=== PATIENT | female | born 1950 | race Caucasian/White ===

== ENCOUNTER → 2019-12-05 09:22 | Outpatient (BNVA) | payer MEDICARE, OTHER, SELFPAY | PROVIDERS: Family Provider Registered Nurse; PCP Nurse Practitioner Family; Visit Provider Nurse Practitioner Family | DX: E78.5 Hyperlipidemia, unspecified (principal); R73.09 Other abnormal glucose; E03.9 Hypothyroidism, unspecified | CPT/HCPCS: 80061; 83036; 84443 ==

== ENCOUNTER → 2020-01-22 12:15 | Outpatient (BNVA) | payer MEDICARE, OTHER, SELFPAY | PROVIDERS: Family Provider Registered Nurse; PCP Nurse Practitioner Family; Visit Provider Nurse Practitioner Family | DX: E03.9 Hypothyroidism, unspecified (principal); F41.1 Generalized anxiety disorder; E78.5 Hyperlipidemia, unspecified | CPT/HCPCS: 80053; 80061; 84443 ==

== ENCOUNTER → 2020-02-03 13:12 | Outpatient (BNVA) | payer MEDICARE, OTHER, SELFPAY | PROVIDERS: Family Provider Registered Nurse; PCP Nurse Practitioner Family; Referring Provider Nurse Practitioner Family; Visit Provider Specialist | DX: M25.562 Pain in left knee (principal) | CPT/HCPCS: 73560; 73565 ==

== ENCOUNTER 2020-02-05 15:12 | Outpatient (CLI) | payer MEDICARE, OTHER, SELFPAY ==
--- NOTE | 2020-02-05 15:22 | MR_ITS ---
WS: [id number] MRI LEFT KNEE NONCONTRAST TECHNIQUE: Axial PD, coronal PD fat sat, coronal PD, sagittal PD, and sagittal PD fat-sat images obta ined. CLINICAL INFORMATION: PAIN IN UNSPECIFIED KNEE COMPARISON: None. FINDINGS: Distal quadriceps and patella tendons are intact. Moderate suprapatellar effusion. Large lobulated po pliteal cyst with septations. Popliteal cyst measures 3.2 x 6.1 x 8.3 cm AP by transverse by cranioca udal. Mild edema in the prepatellar and infrapatellar soft tissues. Hypertrophic patella. Normal anterior and posterior cruciate ligaments. Chronic thinning of the medial and lateral meniscus . Chronic intrasubstance signal abnormality involving the medial meniscus. Chronic appearing tear in volving the posterior horn medial meniscus with T2 signal abnormality and blunting of the meniscal ro ot. Moderate chondromalacia patella. No subchondral edema. Patellar retinaculum appears normal. Medial an d lateral collateral ligaments are intact. Moderate chondromalacia involving the medial and lateral j oint compartments. Small 5 mm osteochondral defect involving the medial femoral condyle. MR/MR knee LT wo con* [id number] IMPRESSION: 1. Moderate suprapatellar effusion. 2. Large lobulated popliteal cyst measuring 3.2 x 6.1 x 8.3 cm with internal s eptations. 3. Anterior and posterior cruciate ligaments are intact. 4. Blunting of the posterior horn medial meniscus at the meniscal root with T2 signal abnormality likely chronic meniscal tear. 5. Small 5 mm osteochondral defect involving the medial femoral condyle at the articular surface. 6. Prepatellar soft tissue edema. Hypertrophic patella. 7. Moderate chondromalacia patella. 8. Medial and lateral collateral ligaments are intact.
== END 2020-02-05 15:13 | disposition home or self-care (01) ==
LOC: RADWPI 15:16
PROVIDERS: PCP Nurse Practitioner Family; Visit Provider Specialist
DX: M25.462 Effusion, left knee (principal); M71.22 Synovial cyst of popliteal space [Baker], left knee; R60.0 Localized edema; M22.42 Chondromalacia patellae, left knee
CPT/HCPCS: 73721

== ENCOUNTER 2020-02-19 06:00 | Outpatient (RCR) | payer MEDICARE, OTHER, SELFPAY | END 2020-02-24 23:59 | disposition home or self-care (01) | LOC: WPT 06:00 | PROVIDERS: PCP Nurse Practitioner Family; Referring Provider Specialist; Visit Provider Specialist | DX: M25.562 Pain in left knee (principal) | CPT/HCPCS: 97110; 97162 ==

== ENCOUNTER 2020-02-25 06:00 | Outpatient (RCR) | payer MEDICARE, OTHER, SELFPAY | END 2020-03-26 23:59 | disposition home or self-care (01) | LOC: WPT 06:00 | PROVIDERS: PCP Nurse Practitioner Family; Referring Provider Specialist; Visit Provider Specialist | DX: M25.562 Pain in left knee (principal) | CPT/HCPCS: 97110 ==

== ENCOUNTER 2020-03-27 06:00 | Outpatient (RCR) | payer MEDICARE, OTHER, SELFPAY | END 2020-04-26 23:59 | disposition home or self-care (01) | LOC: WPT 06:00 | PROVIDERS: PCP Nurse Practitioner Family; Referring Provider Specialist; Visit Provider Specialist | DX: M25.562 Pain in left knee (principal) | CPT/HCPCS: 97110 ==

== ENCOUNTER → 2020-04-08 15:24 | Outpatient (BNVA) | payer MEDICARE, OTHER, SELFPAY | PROVIDERS: PCP Nurse Practitioner Family; Visit Provider Specialist | DX: M17.12 Unilateral primary osteoarthritis, left knee (principal) | CPT/HCPCS: 73560; 73565 ==

== ENCOUNTER → 2020-12-09 09:56 | Outpatient (BNVA) | payer MEDICARE, OTHER, SELFPAY | PROVIDERS: PCP Nurse Practitioner Family; Visit Provider Nurse Practitioner Family | DX: E03.9 Hypothyroidism, unspecified (principal) | CPT/HCPCS: 84443 ==

== ENCOUNTER → 2021-06-17 10:00 | Outpatient (BNVA) | payer MEDICARE, OTHER, SELFPAY | PROVIDERS: PCP Nurse Practitioner Family; Visit Provider Nurse Practitioner Family | DX: E03.9 Hypothyroidism, unspecified (principal); I10 Essential (primary) hypertension | CPT/HCPCS: 84443 ==

== ENCOUNTER → 2021-10-13 13:35 | Outpatient (BNVA) | payer MEDICARE, OTHER, SELFPAY | PROVIDERS: PCP Nurse Practitioner Family; Visit Provider Nurse Practitioner Family | DX: R19.5 Other fecal abnormalities (principal); R19.7 Diarrhea, unspecified | CPT/HCPCS: 82270 ==

== ENCOUNTER → 2022-01-05 10:29 | Outpatient (BNVA) | payer MEDICARE, OTHER, SELFPAY | PROVIDERS: PCP Nurse Practitioner Family; Visit Provider Nurse Practitioner Family | DX: M54.6 Pain in thoracic spine (principal); R35.0 Frequency of micturition | CPT/HCPCS: 81000 ==

== ENCOUNTER → 2022-02-08 13:15 | Outpatient (BNVA) | payer MEDICARE, OTHER, SELFPAY | PROVIDERS: PCP Nurse Practitioner Family; Referring Provider Nurse Practitioner Family; Visit Provider Orthopaedic Surgery | DX: S32.010S Wedge compression fracture of first lumbar vertebra, sequela (principal); V89.2XXS Person injured in unspecified motor-vehicle accident, traffic, sequela; R39.15 Urgency of urination; M47.816 Spondylosis without myelopathy or radiculopathy, lumbar region | CPT/HCPCS: 72100; 99204 ==

== ENCOUNTER 2022-03-02 14:54 | Outpatient (CLI) | payer MEDICARE, OTHER, SELFPAY ==
--- NOTE | 2022-03-02 15:15 | MR_ITS ---
WS: [id number] MRI LUMBAR SPINE NONCONTRAST TECHNIQUE: Sagittal T1, T2 and STIR imaging. Axial T1 and T2 imaging. CLINICAL INFORMATION: compression fracture COMPARISON: None. FINDINGS: Mild lumbar curve. Mild compression superior endplate L1 anteriorly with edema consistent with recent acute compression. Minimal loss vertebral body height with mild anterior wedging. No retropulsion. N o other compression fractures. Moderate thoracic kyphosis. Chronic anterior wedging in the mid thoracic spine. Compression is unchan ged since radiograph February 08, 2022. L1-L2: Mild annular bulging. Mild facet arthropathy. Spinal canal and foramen are patent. L2-L3: Slight retrolisthesis. Mild disc bulging with slight impingement on the LEFT greater than RIGH T subarticular recess and traversing L3 nerve roots. Moderate facet arthropathy. Mild LEFT foraminal narrowing. Mild central canal stenosis. L3-L4: Mild annular bulging with slight effacement of ventral thecal sac. Slight impingement on the s ubarticular recess and traversing LEFT L4 nerve root. Mild facet arthropathy. L4-L5: Mild disc osteophyte complex with endplate ridging. Impingement traversing L5 nerve roots bila terally. Mild central canal stenosis. Moderate facet arthropathy. Mild LEFT foraminal narrowing. L5-S1: Slight anterolisthesis. Mild disc bulging with impingement on the traversing S1 nerve roots bi laterally. Mild central canal stenosis. Moderate facet arthropathy. Foramen are patent. Visualized pelvic bony structures: Normal. Paravertebral soft tissues: Normal. Cholelithiasis. MR/MR lumbar spine wo con* [id number] IMPRESSION: 1. Mild compression superior endplate L1 with edema consistent with recent acu te compression unchanged since the recent radiograph. Minimal loss vertebral vitor dy height. No retropulsion. 2. Mild central canal stenosis L2-L3, L4-5, and L5-S1. 3. No other acute compression fractures. 4. Slight anterolisthesis L5 on S1 with mild central canal stenosis. Slight im pingement traversing S1 nerve roots bilaterally. 5. Mild central canal stenosis L4-L5 with impingement traversing L5 nerve root s bilaterally in the subarticular recess. 6. Mild disc bulging L2-L3 impinges the traversing LEFT greater than RIGHT L3 nerve roots. Mild LEFT L2-L3 foraminal narrowing with moderate facet arthropath y. Mild central canal stenosis at this level. 7. Annular bulging L3-L4 impinges the traversing LEFT L4 nerve root in the sub articular recess. 8. Cholelithiasis.
== END 2022-03-02 14:55 | disposition home or self-care (01) ==
PROVIDERS: PCP Nurse Practitioner Family; Visit Provider Orthopaedic Surgery
DX: R39.15 Urgency of urination (principal); S32.010A Wedge compression fracture of first lumbar vertebra, initial encounter for closed fracture; K80.20 Calculus of gallbladder without cholecystitis without obstruction; M51.26 Other intervertebral disc displacement, lumbar region; M48.061 Spinal stenosis, lumbar region without neurogenic claudication; M48.07 Spinal stenosis, lumbosacral region; X58.XXXA Exposure to other specified factors, initial encounter
CPT/HCPCS: 72148

== ENCOUNTER → 2022-03-29 16:25 | Outpatient (BNVA) | payer MEDICARE, OTHER, SELFPAY | PROVIDERS: PCP Nurse Practitioner Family; Visit Provider Orthopaedic Surgery | DX: M54.6 Pain in thoracic spine (principal) | CPT/HCPCS: 99213 ==

== ENCOUNTER → 2022-03-30 11:47 | Outpatient (BNVA) | payer MEDICARE, OTHER, SELFPAY | PROVIDERS: PCP Nurse Practitioner Family; Visit Provider Nurse Practitioner Family | DX: S40.022A Contusion of left upper arm, initial encounter (principal); X58.XXXA Exposure to other specified factors, initial encounter | CPT/HCPCS: 85025 ==

== ENCOUNTER → 2022-06-16 08:49 | Outpatient (BNVA) | payer MEDICARE, OTHER, SELFPAY | PROVIDERS: PCP Nurse Practitioner Family; Visit Provider Nurse Practitioner Family | DX: J02.9 Acute pharyngitis, unspecified (principal); J01.90 Acute sinusitis, unspecified | CPT/HCPCS: 87880 ==

== ENCOUNTER 2022-11-03 11:21 | Outpatient (CLI) | payer MEDICARE, OTHER, SELFPAY ==
--- NOTE | 2022-11-03 11:29 | XR_ITS ---
WS: [id number] XR chest 2V* [id number] REASON FOR EXAM: R06.00 - Dyspnea, unspecified FINDINGS: The heart and the mediastinum are within normal limits. Minimal calcified granulomatous disease in both hemithoraces. Increased interstitial lung opacities in the lower lung saravia with ill-defined areas of lucency in t he upper lung saravia. No acute or subacute pulmonary parenchymal or pleural abnormality. Significant dorsal kyphosis with moderate degenerative spondylosis in the mid and lower thoracic spin e. IMPRESSION: Lung changes which may indicate the presence of central lobar emphysema. No significant hyperexpansio n.
== END 2022-11-03 11:22 | disposition home or self-care (01) ==
LOC: RAD 11:25
PROVIDERS: PCP Nurse Practitioner Family; Visit Provider Nurse Practitioner Family
DX: R06.00 Dyspnea, unspecified (principal); I10 Essential (primary) hypertension; E78.5 Hyperlipidemia, unspecified; E03.9 Hypothyroidism, unspecified
CPT/HCPCS: 71046; 80053; 80061; 84443

== ENCOUNTER 2022-11-23 11:43 | Outpatient (CLI) | payer MEDICARE, OTHER, SELFPAY ==
--- NOTE | 2022-11-23 12:15 | CT_ITS ---
WS: [id number] LDCT LUNG CANCER SCREENING HISTORY: Z12.2 - Encounter for screening for malignant neoplasm of... TECHNIQUE: Axial imaging performed from the apices to 1 cm below the costophrenic angles. Coronal and sagittal reformats are submitted with axial MIP series. All CT scans at [facility] use at least one of these dose optimization techniques: automated exposure control; mA and/or kV adjustment per patient size (includes targeted exams where dose is matched to clinical indication); or iterativ e reconstruction. DLP: 55.79 mGy.cm DIvol: Mean CTDIvol: 1.00 (mGy) COMPARISON: None available. Diagnostic quality: Satisfactory Lungs: Mild centrilobular emphysema. No pulmonary mass or nodule. No endobronchial lesions. Heart: Normal size heart with no pericardial effusion.. Other findings: Minimal atherosclerotic plaque within the thoracic aorta. Pulmonary artery is equal i n size to the aorta. No adenopathy. Asymmetric enhancement of the thyroid. No significant enhancement of the LEFT thyroid. May be small caliber or surgically removed. No surgical clips or history of thy roidectomy was provided. Variable density in the gallbladder lumen. IMPRESSION: CT/CT lung screening [id number] LUNG-RADS: 1S-Negative with Significant Findings FOLLOW UP: 12 Month: Continue annual screening with LDCT OTHER FINDINGS (S MODIFIER): Possible cholelithiasis. Consider follow-up RIGHT upper quadrant ultrasound.
== END 2022-11-23 11:44 | disposition home or self-care (01) ==
PROVIDERS: PCP Nurse Practitioner Family; Visit Provider Nurse Practitioner Family
DX: Z12.2 Encounter for screening for malignant neoplasm of respiratory organs (principal)
CPT/HCPCS: 71271

== ENCOUNTER → 2023-02-05 15:03 | Outpatient (BNVA) | payer MEDICARE, OTHER, SELFPAY | PROVIDERS: PCP Nurse Practitioner Family; Visit Provider Nurse Practitioner | DX: R30.0 Dysuria (principal) | CPT/HCPCS: 81000 ==

== ENCOUNTER → 2023-02-15 08:31 | Outpatient (BNVA) | payer MEDICARE, OTHER, SELFPAY | PROVIDERS: PCP Nurse Practitioner Family; Visit Provider Nurse Practitioner Family | DX: E78.5 Hyperlipidemia, unspecified (principal) | CPT/HCPCS: 80061 ==

== ENCOUNTER → 2023-05-26 10:08 | Outpatient (BNVA) | payer MEDICARE, OTHER, SELFPAY | PROVIDERS: PCP Nurse Practitioner Family; Visit Provider Nurse Practitioner Family | DX: I10 Essential (primary) hypertension (principal) | CPT/HCPCS: 80053; 80061; 84443 ==

== ENCOUNTER 2023-07-20 11:25 | Outpatient (CLI) | payer MEDICARE, OTHER, SELFPAY ==
--- NOTE | 2023-07-20 11:45 | XRR_ITS ---
PROCEDURE INFORMATION: Exam: XR Right Knee Exam date and time: 07/20/2023 11:47 AM Age: 72 years old Clinical indication: Pain; Knee; Right; Additional info: M25.561 - pain in right knee TECHNIQUE: Imaging protocol: Radiologic exam of the right knee. Views: 3 views. COMPARISON: CR XR knees AP WB w RT lmt ORTH 11/16/2016 11:23 AM FINDINGS: Bones/joints: . Mild tricompartment narrowing and spurring. No fracture or dislocation. No erosive changes. Soft tissues: Normal. XR/XR knee RT 3V* [id number] IMPRESSION: Mild degenerative changes.
== END 2023-07-20 11:26 | disposition home or self-care (01) ==
LOC: RAD 11:27
PROVIDERS: PCP Nurse Practitioner Family; Visit Provider Nurse Practitioner Family
DX: M17.11 Unilateral primary osteoarthritis, right knee (principal)
CPT/HCPCS: 73562

== ENCOUNTER → 2023-08-03 09:16 | Outpatient (BNVA) | payer MEDICARE, OTHER, SELFPAY | PROVIDERS: PCP Nurse Practitioner Family; Referring Provider Nurse Practitioner Family; Visit Provider Physician Assistant | DX: M25.561 Pain in right knee (principal); G89.29 Other chronic pain; M17.11 Unilateral primary osteoarthritis, right knee; Z46.89 Encounter for fitting and adjustment of other specified devices | CPT/HCPCS: 20610; 73560; 73565; 97760; 99213; J3301; L1851 ==

== ENCOUNTER 2023-08-03 14:27 | Outpatient (CLI) | payer MEDICARE, OTHER, SELFPAY | END 2023-08-03 14:28 | disposition home or self-care (01) | LOC: SPT 14:27 | PROVIDERS: PCP Nurse Practitioner Family; Visit Provider Physician Assistant | DX: Z46.89 Encounter for fitting and adjustment of other specified devices (principal); M17.11 Unilateral primary osteoarthritis, right knee | CPT/HCPCS: 97760; L1851 ==

== ENCOUNTER → 2023-08-25 09:38 | Outpatient (BNVA) | payer MEDICARE, OTHER, SELFPAY | PROVIDERS: PCP Nurse Practitioner Family; Visit Provider Physician Assistant | DX: M17.11 Unilateral primary osteoarthritis, right knee | CPT/HCPCS: 99214 ==

== ENCOUNTER 2023-10-18 10:49 | Outpatient (CLI) | payer MEDICARE, OTHER, SELFPAY ==
[2023-10-18 11:07] LABS: Add Urine Microscopic? NO; Charge for UA Resulting for Rev
[2023-10-18 11:12] LABS: Basophils % 0.8 %; Eosinophils # 0.2 10^3/uL (0.0-0.8); Eosinophils % 4.4 %; Hematocrit 40.3 % (36-47); Lymphocytes # 1.9 10^3/uL (0.8-4.8); Lymphocytes % 38.1 %; Mean Corpuscular Hemoglobin 28.6 pg (27-33); Mean Corpuscular Volume 92.2 fl (85-98); Mean Platelet Volume 11.1 fL (7.4-10.4); Monocytes # 0.5 10^3/uL (0.2-0.9); Monocytes % 9.2 %; Neutrophils # 2.37 10^3/uL (1.8-7.7); Neutrophils % 47.3 %; Nucleated Red Blood Cells % 0 %; Platelet Count 194 10^3/cmm (157-399); Red Blood Count 4.37 10^6/uL (3.85-5.65); Red Cell Distribution Width 13.8 % (12.1-15.1); White Blood Count 5.01 10^3/uL (3.29-11.43)
[2023-10-18 11:19] LABS: Bilirubin Urine Neg (Negative); Blood Urine Neg (Negative); Glucose Urine UA Norm (Normal); Ketones Urine Negative (Negative); Leukocyte Esterase Urine Negative (Negative); Nitrate Urine Negative (Negative); Protein Urine Neg (Negative); Urine Appearance Clear (CLEAR); Urine Color Yellow (Yellow); Urobilinogen Urine Norm (Negative); pH Urine 6.5 (5-7)
[2023-10-18 11:27] LABS: Alanine Aminotransferase 24 U/L (0-33); Albumin Level 4.2 g/dL (3.5-5.2); Alkaline Phosphatase 84 U/L (35-105); Aspartate Amino Transferase 24 U/L (0-32); Blood Urea Nitrogen 10 mg/dL (8-23); Calcium 9.3 mg/dL (8.5-10.5); Carbon Dioxide 27 mmol/L (22-29); Chloride 103 mmol/L (98-107); Globulin 2.8 g/dL (1.3-4.6); Glucose 94 mg/dL (65-115); Osmolality Calculated 289 mOsm/kg (285-295); Sodium 140 mmol/L (136-145); Total Bilirubin 0.3 mg/dL (0.15-1.2)
== END 2023-10-18 10:50 | disposition home or self-care (01) ==
LOC: LAB 10:50
PROVIDERS: Physician Assistant; PCP Nurse Practitioner Family; Visit Provider Student in an Organized Health Care Education/Training Program
DX: Z01.818 Encounter for other preprocedural examination (principal)
CPT/HCPCS: 36415; 80053; 81003; 85025

== ENCOUNTER 2023-10-25 10:30 | Outpatient (CLI) | payer MEDICARE, OTHER, SELFPAY ==
--- NOTE | 2023-10-25 10:30 | CT_ITS ---
WS: [id number] CT RIGHT KNEE, NONCONTRAST [facility] TECHNIQUE: Noncontrast CT of the RIGHT knee to include the RIGHT hip and ankle. CLINICAL INFORMATION: M17.11 - Unilateral primary osteoarthritis, right knee COMPARISON: None. DLP: 929.[address] scans at [facility] use at least one of these dose optimization techniques: automated e xposure control; mA and/or kV adjustment per patient size (includes targeted exams where dose is matc hed to clinical indication); or iterative reconstruction. FINDINGS: Moderate to advanced tricompartment arthritis with hypertrophic changes along the joint line. Small s uprapatellar effusion. Slightly hypertrophic patella. Lobulated popliteal cyst measuring approximatel y 4.6 x 1.5 cm. This also extends craniocaudal Normal visualized pelvic bony structures. Normal partially visualized sigmoid colon. No inguinal lymp hadenopathy. CT/CT knee RT [facility] [id number] IMPRESSION: Images obtained for preoperative purposes.
== END 2023-10-25 10:31 | disposition home or self-care (01) ==
PROVIDERS: PCP Family Medicine; Visit Provider Physician Assistant
DX: Z01.818 Encounter for other preprocedural examination (principal); M17.11 Unilateral primary osteoarthritis, right knee; M71.21 Synovial cyst of popliteal space [Baker], right knee
CPT/HCPCS: 73700; 93005

== ENCOUNTER → 2023-11-02 15:15 | Outpatient (BNVA) | payer MEDICARE, OTHER, SELFPAY | PROVIDERS: PCP Family Medicine; Visit Provider Physician Assistant | DX: M17.11 Unilateral primary osteoarthritis, right knee (principal) | CPT/HCPCS: 99213 ==

== ENCOUNTER 2023-11-06 10:05 | Observation (INO) | payer MEDICARE, OTHER, SELFPAY ==
[2023-11-06] VITALS (24 sets, daily range): BP systolic 95–161; BP diastolic 50–72; PULSE 61–96; RESP 14–70; TEMP 36.2–37.4; O2SAT 92–100; BMI 29.2
[2023-11-06] MEDS: scopolamine 1.5 Patch 1 PATCH TRANSDERMA (06:23)
[2023-11-06] MEDS: lactated ringers 500 ML IV (06:23)
[2023-11-06] MEDS: acetaminophen 1,000 MG/100 ML PIGGYBACK 400 MG IV ×3 (06:24→22:38)
[2023-11-06] MEDS: sodium chloride 0.9% 1,000 ML 30 ML IV (06:38)
[2023-11-06 06:47] LABS: Basophils % 0.7 %; Eosinophils # 0.2 10^3/uL (0.0-0.8); Eosinophils % 3.8 %; Hematocrit 41.2 % (36-47); Lymphocytes # 1.8 10^3/uL (0.8-4.8); Mean Corpuscular HGB Conc 31.6 g/dL (30-55); Mean Corpuscular Hemoglobin 28.5 pg (27-33); Mean Corpuscular Volume 90.4 fl (85-98); Mean Platelet Volume 11.6 fL (7.4-10.4); Monocytes # 0.5 10^3/uL (0.2-0.9); Monocytes % 8.2 %; Neutrophils # 3.01 10^3/uL (1.8-7.7); Neutrophils % 53.9 %; Nucleated Red Blood Cells % 0 %; Platelet Count 216 10^3/cmm (157-399); Red Blood Count 4.56 10^6/uL (3.85-5.65); Red Cell Distribution Width 13.6 % (12.1-15.1); White Blood Count 5.58 10^3/uL (3.29-11.43)
[2023-11-06 06:56] LABS: Blood Urea Nitrogen 13 mg/dL (8-23); Calcium 9.1 mg/dL (8.5-10.5); Carbon Dioxide 25 mmol/L (22-29); Chloride 104 mmol/L (98-107); Glucose 109 mg/dL (65-115); Osmolality Calculated 291 mOsm/kg (285-295); Sodium 140 mmol/L (136-145)
--- NOTE | 2023-11-06 07:07 | W.PM.OPSUD ---
Surgery/Procedure H&P Update DATE OF PROCEDURE: November 06, 2023 DATE H&P PERFORMED: 11/02/23 H&P UPDATE INFORMATION: I have reviewed H&P completed within last 30 days, I have examined patient prior to procedure and No changes to prior documentation CHANGES TO PREVIOUS DOCUMENTATION: Patient is clear the preoperative clearance process. Patient is over 90 days out from her injection she has no change in her health since her last visit. She is ready to proceed with surgical intervention for right total knee arthroplasty Wilver robotic assisted today. PREOP DIAGNOSIS: Right knee degenerative joint disease PRIMARY INDICATION FOR PROCEDURE: Right knee degenerative joint disease PLANNED PROCEDURE: Operation Date: 11/06/23 07:00 Proposed Procedures p Wilver Robot Total Knee Arthroplasty(Right) - Ang Alvarez DO
[2023-11-06 07:09] LABS: Anion Gap 14.7 (5-19); Potassium 3.7 mmol/L (3.5-5.1)
--- NOTE | 2023-11-06 07:11 | P.ANESASSM_ITS ---
Pre-Anesthetic Assessment Height/Weight: Height 1.55 m Weight 70.307 kg Temp Pulse Resp BP Pulse Ox O2 Del Method 97.9 F 63 18 161/67 98 Room Air 11/06/23 06:02 11/06/23 06:02 11/06/23 06:02 11/06/23 06:02 11/06/23 06:02 11/06/23 06:02 Preop Diagnosis: Right knee degenerative joint disease Operation Date: 11/06/23 07:00 Proposed Procedures p Wilver Robot Total Knee Arthroplasty(Right) - Ang Alvarez DO Familial anesthetic complications: None Was Beta Bambi taken within 24 hours: N/A Was Clonidine taken within 24 hours: N/A Last intake: Intake Last Liquid Date 11/05/23 Last Liquid Time 22:00 Last Solid Date 11/05/23 Last Solid Time 16:00 Social No alcohol and No tobacco Exam alert, oriented x 3, clear to auscultation bilaterally and regular rate & rhythm Airway Mallampati: Class I Dentition: false Pulmonary Chronic Obstructive Pulmonary Disease CV/HEM Hypertension MVP - only symptoms are occassional palpitations, recieved an echo and was told it was so mild it could barely be seen GI Gastroesophageal Reflux Disease Metabolic Thyroid Disease Anesthetic Plan ASA status: 3 Anesthesia: Regional (specify below) Risk of > 500 ml blood loss (7ml/kg in children): No Medications/Allergies Home Medications Medication Instructions Recorded Confirmed Last Taken Type albuterol sulfate 90 mcg/actuation 2 puff inhalation Q6H PRN 11/03/22 11/06/23 10/30/23 Rx aerosol inhaler shortness of breath or wheezing #6.7 grams Right (medial) Instructional Assistant Knee Brace #1 ea 08/03/23 11/02/23 Unknown Rx clonazepam 0.5 mg tablet 0.5 mg PO .at hs #90 tabs 08/15/23 11/06/23 11/05/23 Rx famotidine 40 mg tablet 40 mg PO DAILY #90 tabs 10/25/23 11/06/23 Unknown Rx escitalopram oxalate 5 mg tablet 5 mg PO DAILY 11/03/23 11/06/23 11/05/23 History levothyroxine 50 mcg tablet 50 mcg PO DAILY 11/03/23 11/06/23 11/06/23 History propranolol 20 mg tablet 20 mg PO TID 11/03/23 11/06/23 11/06/23 History Allergies Allergy/AdvReac Type Severity Reaction Status Date / Time doxycycline Allergy Unknown Verified 11/06/23 06:00 fexofenadine [From Alessandra] Allergy Unknown Verified 11/06/23 06:00 fluticasone [From Flonase] Allergy rash Verified 11/06/23 06:00 meloxicam [From Mobic] Allergy chest pains Verified 11/06/23 06:00 naproxen [From Aleve] Allergy chest pains Verified 11/06/23 06:00 paroxetine [From Paxil] Allergy sweating Verified 11/06/23 06:00 medrol Allergy tachycardia Uncoded 11/06/23 06:00 Current Medications Generic Name Dose Route Start Last Admin Trade Name Freq PRN Reason Stop Dose Admin Sodium Chloride 1,000 mls @ 30 mls/hr 11/06/23 06:00 11/06/23 06:38 Sodium Chloride 0.9% IV 11/07/23 05:59 30 mls/hr .Q24H FREDRICK Administration PFSH Anesthesia Medical History Compression fracture of L1 vertebra Nonrheumatic mitral (valve) prolapse Hypertension Lateral meniscal tear Anxiety and depression Hypothyroidism Surgical History History of partial thyroidectomy benign pathology History of tonsillectomy H/O bilateral mastectomy (~09/27/23) prophylactic History of partial hysterectomy Hx of dilation and curettage Family History Mother Cancer pancreatic cancer and breast cancer Father Aortic aneurysm and dissection Grandmother Diabetes 1.5, managed as type 2 Social History Smoking and tobacco/nicotine status: never used tobacco/nicotine Quit status (tobacco/nicotine): has quit using Year quit tobacco: 1983 Second hand smoke exposure: No Alcohol intake: never Substance/Drug Use: never Adopted: No Caregiver/support person: No Lives independently: No Household members: none Marital status: / Number of children: 1 Number of grandchildren: 2 service: No Current occupational status: employed 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 Pets and animals: Yes Pets & animals: cat(s) and dog(s) Leisure activites: reading and other 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 Sexually active: No Do you think of yourself as: Straight/Heterosexual Current gender identity: Female Joi/Latter-Day: Christianity Special joi needs: No Agree to transfusion: Yes Data Anesthesia 11/06/23 06:33 11/06/23 06:17 Short CBC 11/06/23 Range/Units 06:33 WBC 5.58 (3.29-11.43) 10^3/uL Hgb 13.00 (11.27-16.99) g/dL Hct 41.2 (36-47) % MCV 90.4 (85-98) fl Plt Count 216 (157-399) 10^3/cmm Neut % (Auto) 53.9 % Neut # (Auto) 3.01 (1.8-7.7) 10^3/uL BMP 11/06/23 06:17 Sodium 140 Potassium 3.7 Chloride 104 Carbon Dioxide 25 BUN 13 Creatinine 0.7 Glucose 109 Calcium 9.1 Cardiac Studies: 2 No Data to Display
[2023-11-06] MEDS: ceFAZolin 2,000 MG in sodium chloride 0.9% (plus) 50 ML 100 MG IV ×3 (07:12→23:11)
[2023-11-06] MEDS: tranexamic acid 1,000 mg/10mL SDV 1000 MG IV (07:50)
[2023-11-06] MEDS: EPINEPHrine 1 mg/mL INJ XX (08:32)
[2023-11-06] MEDS: tranexamic acid 1,000 mg/10mL SDV 1000 MG XX (08:32)
[2023-11-06] MEDS: ROPivacaine 0.2% Premix 100 mL 200 MG INTRA-ARTI (08:32)
--- NOTE | 2023-11-06 09:30 | P.BOP_ITS ---
Date of Procedure: 11/06/2023 Surgeon: Ang Alvarez DO Ct Technician(s): Yassine Alvarez PA-C Procedure(s) performed: Right total knee arthroplasty?Wilver robotic assisted Findings of the procedure(s): Right knee degenerative joint disease underwent procedure as planned without issues or complications. Estimated blood loss: 25 mL Specimen(s) removed: Tibia femur and patellar bone cuts removed Post-operative diagnosis: Right knee degenerative joint disease
--- NOTE | 2023-11-06 09:32 | PM.OP ---
Operative Report Date of procedure: November 06, 2023 Surgeon: Ang Alvarez DO Procedure: Preoperative diagnosis: Right knee degenerative joint disease Post-op diagnosis: Same Procedure done: Right total knee arthroplasty, cemented?robotic assisted Wilver Implants: [place] triathlon size 4 femur CR cemented?Right Alisha triathlon size? 4 tibia universal baseplate cemented Alisha triathlon symmetric patella size 33 mm [place] triathlon polyethylene 9mm Surgeon: Ang Alvarez DO Estimated blood?loss: 25 mL Tourniquet 67mins IV fluids: 1100 mL Urine output: 1000 mL Complications: None Condition: stable Disposition: floor Brief History: Patient is a 72-year-old female with with chronic?Right knee degenerative joint disease.? Patient has been worked up in the outpatient setting in the orthopedic office at this point time through shared decision making given? eelk-we-gela arthritis as well as failed conservative treatment, and pt would?like to proceed with a?Right total knee arthroplasty.? Through shared decision making elected to proceed with surgical intervention for?Right total knee arthroplasty.? We talked about continued conservative treatment and surgical intervention as far as the risk benefits complications alternatives surgical and nonsurgical treatment options.? At this point time understanding patient risks with surgery he agrees to proceed with surgical intervention.? Once again? risk with surgery include but are not?limited to make it better make it worse blood clot, heart attack, stroke, on the table, infection, injury to nerves or vessels, persistent pain, arthrofibrosis, implant failure.? Understanding these risks patient agrees to proceed with surgical intervention consent was obtained in the office.? All questions answered. Procedure: Patient was seen and evaluated in the preoperative holding area.? Consent was reviewed and signed with patient with plan for?Right total knee arthroplasty.? All questions answered.? Correct extremity marked.? Patient seen and evaluated by the anesthesia department and once cleared for surgery was taken back to the operative suite.? Patient was placed into a supine position on the OR table.? All bony prominences were well-padded.? Patient was appropriately secured to the bed.? Patient underwent anesthesia per the anesthesia department.? Patient received spinal anesthesia and? Trejo catheter was placed.? A nonsterile tourniquet was applied to the?Right thigh.? At this point in time a final timeout performed.? Patient received appropriate preoperative antibiotics and TXA. Next the?Right?lower extremity was then prepped and draped in standard orthopedic fashion. Esmarch tourniquet was used exsanguinate the?Right?lower extremity.? Tourniquet was insufflated to 250 mmHg. A standard anterior incision was made over midline of the knee.? Sharp scalpel excision through skin and subcutaneous tissue full-thickness skin flaps were made.? Fascia was elevated off of the extensor retinaculum was stable with medial parapatellar arthrotomy was then made.? The performed standard sequential releases.? Immediately on entry into the joint patient was found to have severe eburnated bone and tricompartmental arthritic changes noted.? With significant osteophyte formation.? Next the the patella was then stuffed and the knee was then flexed.?? Niesha was placed superiorly around the anterior aspect of the femur this was freed of synovium and I subsequently then placed by 2 femur pins to establish my femur arrays for the Wilver robot.? These were then placed bicortically and? femur array was then appropriately secured with appropriate visualization.? Next attention was turned towards the tibial rays.? These were then drilled sequentially bicortically in parallel fashion and intraincisional.? I then placed my guide as well as my tibial array on in place.? This was appropriately secured and had excellent visualization with the Wilver robot.? Next the tibial checkpoint as well as femur checkpoint were then placed.? At this point time I then subsequently established my head center as well as my medial?lateral malleoli as well as my checkpoints.? Next utilizing standard Wilver technology I then mapped out the appropriate points and confirmation points around the femur as well as the tibia in standard fashion.? Once this was then done I then removed all osteophytes in preparation for dynamic testing.? All osteophytes were removed as well as I removed the ACL and the PCL was excised due to its significant tearing and degeneration noted.? At this point time the knee was brought into full extension and we performed our standard evaluation of our gap balancing stressing his?ligaments and extension as well as flexion appropriate adjustments were made to have appropriate gap balancing in both flexion and extension.? This plan for final counts.? We get a preoperative plan evaluating our implants which was a size 4 femur and a size 4 tibia.? Next we brought in the Wilver robot and sequentially made our femur cuts.? All excess bony cuts were then removed.? Finally we made our tibial cut.? Once this was done a standard PCL retractor was then placed into this position I excised the medial and?lateral meniscus.? The tibial cut was then subsequently removed all excess bony debris was removed.? I then utilized a?lamina hotel or motel cleaning supervisor and remove the posterior osteophytes.? At this point time sized the tibia and confirmed this was a size 4.? I utilized our blunt probe to establish rotation of tibial implant.? Once this was done I then placed my tibia size 4 trial in appropriate position and then subsequently placed tibial pins to hold this into place placed a size 9 mm poly as well as a size 4 femur which was appropriately impacted in place knee was then subsequently brought into extension. Trials were then assessed,? this was stable with varus valgus stress in extension as well as had symmetrical translation when brought into flexion demonstrating symmetrical gaps. I had excellent balance gaps in flexion and extension with varus and valgus stresses.? At this point I was satisfied with these implants these were then verified and opened on the back table size 4 tibia, size 4 femur,? size 9 mm polythickness.? We did confirm appropriate gap balancing and stresses as well as alignment utilizing? [employer] and were satisfied with this plan.? ?At this point time with my trials in place I then towel clip the patella everted this made appropriate measurements subsequently utilizing freehand technique performed by patellar resurfacing this was confirmed to be appropriate resection and subsequently sized to be a 33 mm symmetric.? My drill peg guides were then clamped and appropriate position and appropriate position in the patella for appropriate tracking and parallel with the joint.? Pegs were drilled trial implant was placed and the knee was then subsequently ranged and found to have excellent patellar tracking.? Femur pegs were then drilled.? All checkpoints as well as guidepins and arrays were removed and appropriate counts made.?Satisfied with our tibial placement rotation I then utilized the keel punch and prepped the tibia.? At this point time all of our trial implants were removed.? The wound bed? was thoroughly irrigated and dried and prepped for cementation.? Cement was mixed on the back table.? Once cement was ready this was then covered onto the tibia and the tibial baseplate was then impacted and all excess cement was removed.? Next the polyethylene was then impacted into place on the tibial baseplate.? Next cement was placed onto the femur as well as under the femur implants and impacted in to place and all excess cement was extruded and removed.? Knee was taken into full extension? to clear all excess cement was removed.? Warm saline was placed over the joint.? I then towel clip patella and dried for cementation. cemented the patella into place.? This was all clamped and the cement was allowed to cure.? Thorough irrigation performed with pulse?lavage.? I then placed my periarticular injection while the cement was curing.? Once cured the knee was taken through range of motion and had excellent stability and gaps were balanced in flexion and extension.? Tourniquet was then deflated. hemostasis satisfactory with electrocautery.? Next I then subsequently closed the capsule with Ethibond suture as well as a running strata fix suture.? Knee was then taken through range of motion 30 times.? Next the skin was then closed in?layered fashion of running stratifix sutures of deep and subcutenous tissue and skin.? ?closed in flexion and Prineo glue was then placed over the incision this allowed to cure.? Incision was covered with Silverlon, with ABDs soft roll and Zac wrap.? Patient was then awakened from anesthesia and taken to PACU in stable condition. Disposition: Patient taken to PACU in stable condition will be admitted to the floor for pain control PT/OT weight-bear as tolerated?Right?lower extremity dressing changes as needed, DVT prophylaxis. Pain control. Patient will receive appropriate postoperative antibiotics. patient will be seen today by the internal medicine team for medical management.? Patient will follow up with the office in 2 weeks.? Patient understands agrees with current plan.? All questions answered.
--- NOTE | 2023-11-06 09:45 | XR_ITS ---
WS: [id number] Examination: XR knee RT 1-2V [id number] Reason for Exam: s/p R TKA Date: November 06, 2023 Comparison: August 03, 2023 Findings: Postop changes of a total right knee prosthesis are noted. The components are intact. They're well-po sitioned and aligned. XR/XR knee RT 1-2V [id number] IMPRESSION: The total knee prosthesis is well-positioned.
--- NOTE | 2023-11-06 10:35 | ANE.PACU2 ---
Inpatient post-anesthesia follow up: Airway intact: Yes Vital signs: Temperature 99.0 F Pulse Rate 74 Respiratory Rate 16 Blood Pressure 130/72 Pulse Oximetry 96 Oxygen Delivery Me thod Room Air Oxygen Flow Rate 6 Fraction of Inspir ed Oxygen Hydration adequate: Yes Nausea and vomiting: No Pain level: 1 Mental status: Baseline
--- NOTE | 2023-11-06 10:36 | SUR.PHASEI ---
1030 pt rates pain at a 5 but does not want pain medication, states does not want pain medication because she is allergic to several medications and does not want to take the chance of being allergic to something she has never taken.
--- NOTE | 2023-11-06 10:49 | PM.PACU ---
PACU note Narrative: Patient is a 72-year-old female that just underwent a right total knee arthroplasty. Pt transferred to PACU in stable condition. Dressing is dry. pt is awake and alert. pt can wiggle toes and plantarflex and dorsiflex foot. pt able to perform straight leg raise, Femoral nerve intact. Distal pulses are palpable toes are warm and well-perfused. Cap refill is normal and under 2 seconds. Sensation to foot is intact. Pain is controlled. Exam: awake Disposition: admitted
--- NOTE | 2023-11-06 11:06 | P.CONIM_ITS ---
Providers/Reason For Consult 2 Consulting Physician/Specialty*: Kadeem Hyde MD, hospitalist Reason for Consult*: Medical management Requesting Physician: Dr. Alvarez Attending Physician: Ang Alvarez DO Primary Care Provider: Fátima Hoffman MD History of Present Illness History of Present Illness Yakelin Sunshine is a 72 year old female with history of hypothyroidism, GERD, hypertension who presented to the hospital for right total knee arthroplasty. She received general anesthesia. No complications during surgery, minimal estimated blood loss. I am asked to see her in consultation for her chronic medications. During my evaluation she is still recovering from anesthesia. Review of Systems 2 General: Reports: ROS unobtainable due to mental status Medications/Allergies Home Medications Medication Instructions Recorded Confirmed Last Taken Type albuterol sulfate 90 mcg/actuation 2 puff inhalation Q6H PRN 11/03/22 11/06/23 10/30/23 Rx aerosol inhaler shortness of breath or wheezing #6.7 grams Right (medial) Plaster Tender Knee Brace #1 ea 08/03/23 11/02/23 Unknown Rx clonazepam 0.5 mg tablet 0.5 mg PO .at hs #90 tabs 08/15/23 11/06/23 11/05/23 Rx famotidine 40 mg tablet 40 mg PO DAILY #90 tabs 10/25/23 11/06/23 Unknown Rx escitalopram oxalate 5 mg tablet 5 mg PO DAILY 11/03/23 11/06/23 11/05/23 History levothyroxine 50 mcg tablet 50 mcg PO DAILY 11/03/23 11/06/23 11/06/23 History propranolol 20 mg tablet 20 mg PO TID 11/03/23 11/06/23 11/06/23 History oxycodone 5 mg tablet 5 mg PO Q6H PRN pain postop 7 days 11/06/23 Unknown Rx #28 tabs Allergies Allergy/AdvReac Type Severity Reaction Status Date / Time doxycycline Allergy Unknown Verified 11/06/23 06:00 fexofenadine [From Alessandra] Allergy Unknown Verified 11/06/23 06:00 fluticasone [From Flonase] Allergy rash Verified 11/06/23 06:00 meloxicam [From Mobic] Allergy chest pains Verified 11/06/23 06:00 naproxen [From Aleve] Allergy chest pains Verified 11/06/23 06:00 paroxetine [From Paxil] Allergy sweating Verified 11/06/23 06:00 medrol Allergy tachycardia Uncoded 11/06/23 06:00 PFSH Acute 2 PFSH: Medical History Compression fracture of L1 vertebra Nonrheumatic mitral (valve) prolapse Hypertension Lateral meniscal tear Anxiety and depression Hypothyroidism Surgical History History of partial thyroidectomy benign pathology History of tonsillectomy H/O bilateral mastectomy (~09/27/23) prophylactic History of partial hysterectomy Hx of dilation and curettage Family History Mother Cancer pancreatic cancer and breast cancer Father Aortic aneurysm and dissection Grandmother Diabetes 1.5, managed as type 2 Social History Smoking and tobacco/nicotine status: never used tobacco/nicotine Quit status (tobacco/nicotine): has quit using Year quit tobacco: 1982 Second hand smoke exposure: No Alcohol intake: never Substance/Drug Use: never Adopted: No Caregiver/support person: No Lives independently: No Household members: none Marital status: / Number of children: 1 Number of grandchildren: 2 service: No Current occupational status: employed 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 Pets and animals: Yes Pets & animals: cat(s) and dog(s) Leisure activites: reading and other 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 Sexually active: No Do you think of yourself as: Straight/Heterosexual Current gender identity: Female Joi/[employer] Special joi needs: No Agree to transfusion: Yes Vitals/I&O/Wt Last Vital Signs Temp 97.2 F L 11/06/23 10:32 Pulse 72 11/06/23 10:32 Resp 16 11/06/23 10:32 BP 145/62 11/06/23 10:32 Pulse Ox 95 11/06/23 10:32 O2 Del Method Room Air 11/06/23 10:32 O2 Flow Rate 6 11/06/23 09:58 08/11/24 08/12/24 08/12/24 22:59 06:59 14:59 Intake Total 600 / 600 1150 / 1150 Output Total 1025 / 1025 Balance 600 / 600 125 / 125 Weight last 48 hrs Weight 70.307 kg Physical Exam 2 Narrative: General exam is a sleepy white female, still with her oral airway and. HEENT: Atraumatic normocephalic. Oropharynx with oral airway. Neck is supple no lymphadenopathy thyromegaly Cardiovascular regular rate and rhythm without murmur, no S3-S4 Lungs clear Abdomen is soft, nontender demonstrates Trejo Extremity, right leg with dressing, clean and dry. Distal perfusion intact without edema Skin no rash Neuro no obvious focal deficits. Urinary Catheter Management: Trejo: Cath Placed During This Visit: yes Urinary Catheter Date of Insertion: 11/06/23 Urinary Catheter Time of Insertion: 07:37 Data 11/06/23 06:33 11/06/23 06:17 Other Labs: Recent urinalysis negative EKG reviewed by me demonstrates sinus bradycardia, normal axis, no acute changes A&P Assessment and plan (1) Osteoarthritis of right knee: Directly postoperative right knee arthroplasty Pain control Rehabilitation DVT prophylaxis with Eliquis CBC and BMP tomorrow to check for postoperative acute blood loss anemia as well as electrolytes considering she is getting fluids. (2) Hypertension: Continue home medication of propranolol, monitor blood pressure closely Qualifiers: Hypertension type: essential hypertension Qualified Code(s): I10 - Essential (primary) hypertension (3) Hyperlipemia: Qualifiers: Hyperlipidemia type: mixed hyperlipidemia Qualified Code(s): E78.2 - Mixed hyperlipidemia (4) Generalized anxiety disorder: Continue patient's Klonopin (5) GERD (gastroesophageal reflux disease): Continue Pepcid Plan History of hypothyroidism, continue thyroid hormone Thank you for this consultation Will continue to follow with you Consult Attestations 2 Medical Necessity Statement: As per primary Diagnoses Osteoarthritis of right knee M17.11 Essential hypertension I10 Hypertension type: essential hypertension Mixed hyperlipidemia E78.2 Hyperlipidemia type: mixed hyperlipidemia Generalized anxiety disorder F41.1 GERD (gastroesophageal reflux disease) K21.9 Time Spent (min) 35
[2023-11-06] MEDS: HYDROmorphone 1 mg/mL INJ 1 mL 0.5 MG IVP ×2 (11:10→22:36)
[2023-11-06] MEDS: lactated ringers 1,000 ML 100 ML IV ×2 (11:36→22:38)
[2023-11-06] MEDS: calcium carb-vit d 600mg/400unit 1 Tablet 1 EACH PO ×2 (13:06→18:34)
[2023-11-06] MEDS: chlorhexidine gluconate 0.12% Btl 473 mL 30 ML MUCOUS MEM ×3 (13:06→20:31)
[2023-11-06] MEDS: iron polysaccharide complex 150 mg Capsule PO (13:06)
[2023-11-06] MEDS: multivitamin therapeutic Tablet 1 TAB PO (13:07)
[2023-11-06] MEDS: docusate sodium 100 mg Capsule PO (13:07)
[2023-11-06] MEDS: mupirocin oint 22 gm 1 APPLIC NASAL ×2 (13:07→18:35)
[2023-11-06] MEDS: oxyCODONE 5 mg IR Tab/Cap PO ×2 (13:08→20:13)
[2023-11-06] MEDS: tranexamic acid 1,000 MG/100 ML PREMIX 600 MG IV (13:08)
[2023-11-06] MEDS: propranolol 20 mg Tablet PO ×2 (15:49→20:13)
[2023-11-06] MEDS: CLONazepam 0.5 mg Tablet PO (20:13)
[2023-11-07] VITALS (7 sets, daily range): BP systolic 105–132; BP diastolic 54–64; PULSE 55–67; RESP 16–20; TEMP 36.6–37.6; O2SAT 92–96
[2023-11-07] MEDS: oxyCODONE 5 mg IR Tab/Cap PO ×3 (02:21→10:31)
[2023-11-07 05:06] LABS: Basophils % 0.2 %; Eosinophils % 0.1 %; Hematocrit 33.6 % (36-47); Lymphocytes # 1.9 10^3/uL (0.8-4.8); Lymphocytes % 22.9 %; Mean Corpuscular HGB Conc 31.5 g/dL (30-55); Mean Corpuscular Hemoglobin 28.6 pg (27-33); Mean Corpuscular Volume 90.8 fl (85-98); Mean Platelet Volume 10.9 fL (7.4-10.4); Monocytes # 0.7 10^3/uL (0.2-0.9); Monocytes % 8.5 %; Neutrophils % 67.8 %; Nucleated Red Blood Cells % 0 %; Platelet Count 181 10^3/cmm (157-399); Red Cell Distribution Width 13.9 % (12.1-15.1); White Blood Count 8.26 10^3/uL (3.29-11.43)
[2023-11-07 05:24] LABS: Anion Gap 11.7 (5-19); Blood Urea Nitrogen 9 mg/dL (8-23); Calcium 8.4 mg/dL (8.5-10.5); Carbon Dioxide 26 mmol/L (22-29); Chloride 108 mmol/L (98-107); Creatinine Clr Calc Pharmacy 59.5717; Glucose 115 mg/dL (65-115); Osmolality Calculated 294 mOsm/kg (285-295); Potassium 3.7 mmol/L (3.5-5.1); Sodium 142 mmol/L (136-145)
[2023-11-07] MEDS: acetaminophen 1,000 MG/100 ML PIGGYBACK 400 MG IV (06:28)
[2023-11-07] MEDS: ceFAZolin 2,000 MG in sodium chloride 0.9% (plus) 50 ML 100 MG IV (07:17)
[2023-11-07] MEDS: levothyroxine 50 mcg Tablet PO (07:31)
[2023-11-07] MEDS: iron polysaccharide complex 150 mg Capsule PO (07:31)
[2023-11-07] MEDS: escitalopram 10 mg Tablet 5 MG PO (08:14)
[2023-11-07] MEDS: multivitamin therapeutic Tablet 1 TAB PO (08:14)
[2023-11-07] MEDS: famotidine 20 mg Tablet 40 MG PO (08:15)
[2023-11-07] MEDS: apixaban 5 mg Tablet 2.5 MG PO (08:15)
[2023-11-07] MEDS: calcium carb-vit d 600mg/400unit 1 Tablet 1 EACH PO (08:15)
[2023-11-07] MEDS: docusate sodium 100 mg Capsule PO (08:15)
[2023-11-07] MEDS: propranolol 20 mg Tablet PO (08:15)
[2023-11-07] MEDS: sennosides-docusate Tablet 2 TAB PO (08:15)
[2023-11-07] MEDS: chlorhexidine gluconate 0.12% Btl 473 mL 30 ML MUCOUS MEM (08:16)
[2023-11-07] MEDS: mupirocin oint 22 gm 1 APPLIC NASAL (08:16)
--- NOTE | 2023-11-07 08:30 | PC.NURSE ---
Dr Hyde rounding in room; verbal order to d/c IV fluids
--- NOTE | 2023-11-07 09:10 | PC.CHAP ---
Pastoral Care Encounter/Spiritual Assessment Type of Contact [] Declined loop cutter visit [] Patient/Family/Request visit [] Outpatient visit [] Follow-up visit [] Physician referral [] Code/Alert [] Routine visit [] Staff referral [] Actively dying [] Patient sleeping [] Family support [] [] Out of room [] Palliative care [] [x] Receiving care in room [] Pre-surgical visit [] Trauma [] Long length of stay [] ICU visit [] Other: Relational/Emotional Strength [] Patient feels connected with others/family/visitors/staff [] Distress [] Loneliness/isolation [] Abandonment Spirituality of Patient [] Person of Joi [] Attends Yarsani of their Joi [] Believes in Prayer [] Reads Bible or Lutheran materials [] There are Spiritual issues to be addressed Wire Steward Interventions [] Prayer [] Active listening [] Non-anxious presence [] Spiritual/emotional support [] Crisis/trauma care [] Spiritual counseling [] Bereavement support [] Provided bereavement packet [] Provided Bible/devotional materials [] Provided toy/stuffed animal, coloring book to patient or family member [] Provided Communion [] Anointing/[place] [] Salvation [] Completed spiritual assessment [] Other: Impact on Illness or Injury [] Angry [] Fearful [] Anxious [] Often cries [] Exhaustion [] Unable to work [] Unable to attend mandaen [] Unable to walk/stand [] Unable to read [] Unable to drive [] Unable to eat/drink [] Unable to sleep [] Unable to be with family [] Patient intubated [] Other: Summary Time spent with patient
[2023-11-07] MEDS: TRAMadol 50 mg Tablet PO ×2 (09:20→13:25)
--- NOTE | 2023-11-07 09:22 | P.PN_ITS ---
Subjective 2 Subjective: No issues overnight. Pain is present but controlled. She would like to go home today. Medications: Reviewed: Yes Vitals/I&O/Wt Last Vital Signs Temp 97.9 F 11/07/23 04:00 Pulse 57 L 11/07/23 04:00 Resp 16 11/07/23 06:28 BP 114/56 11/07/23 04:00 Pulse Ox 96 11/07/23 04:00 O2 Del Method Room Air 11/07/23 07:40 O2 Flow Rate 6 11/06/23 09:58 11/06/23 11/07/23 11/07/23 22:59 06:59 14:59 Intake Total 1530.000 / 2800.000 50 / 2850.000 1150 / 1150 Output Total 1400 / 2425 200 / 2625 Balance 130.000 / 375.000 -150 / 138.946 8186 / 1150 Weight last 48 hrs Weight 76.714 kg Weight 70.307 kg Weight 70.307 kg Physical Exam 2 Narrative: General exam no distress Neck is supple no lymphadenopathy thyromegaly Cardiovascular regular rate and rhythm without murmur, no S3-S4 Lungs clear Abdomen is soft, nontender Extremity, right leg with dressing, clean and dry. Distal perfusion intact without edema Urinary Catheter Management: Trejo: Cath Placed During This Visit: yes, but has since been removed by the nurse Reason for Continuing Indwelling Catheter: Decision to DC Catheter Urinary Catheter Date of Insertion: 11/06/23 Urinary Catheter Time of Insertion: 07:37 Date Urinary Catheter Removed: 11/06/23 Time Urinary Catheter Discontinued: 18:46 Data 11/07/23 04:52 11/07/23 04:52 A&P Assessment and plan (1) Osteoarthritis of right knee: Postoperative day #1 right knee arthroplasty Pain control Rehabilitation DVT prophylaxis with Eliquis Mild acute postoperative blood loss anemia No barriers to discharge I discussed risks and benefits of Eliquis, and things to watch for on discharge. (2) Hypertension: Continue home medication of propranolol, monitor blood pressure closely. Blood pressure acceptable Qualifiers: Hypertension type: essential hypertension Qualified Code(s): I10 - Essential (primary) hypertension (3) Hyperlipemia: Qualifiers: Hyperlipidemia type: mixed hyperlipidemia Qualified Code(s): E78.2 - Mixed hyperlipidemia (4) Generalized anxiety disorder: Continue patient's Klonopin (5) GERD (gastroesophageal reflux disease): Continue Pepcid Plan History of hypothyroidism, continue thyroid hormone Thank you for this consultation Stable from medical standpoint Attestations 2 Medical Necessity Statement*: As per primary Diagnoses Osteoarthritis of right knee M17.11 Essential hypertension I10 Hypertension type: essential hypertension Mixed hyperlipidemia E78.2 Hyperlipidemia type: mixed hyperlipidemia Generalized anxiety disorder F41.1 GERD (gastroesophageal reflux disease) K21.9 Time Spent (min) 19
--- NOTE | 2023-11-07 12:05 | PM.DCS ---
Discharge Providers Date of Admission: 11/06/23 10:05 Date of Discharge: November 07, 2023 Attending Provider at Admission: Ang Alvarez DO Attending Provider at Discharge: Ang Alvarez DO Consults: Hospitalist?Dr. Hyde Primary Care Provider: Fátima Hoffman MD Diagnoses at Discharge Discharge Diagnosis (1) Osteoarthritis of right knee: Status: Resolved (2) Hypertension: Status: Acute Qualifiers: Hypertension type: essential hypertension Qualified Code(s): I10 - Essential (primary) hypertension (3) Hyperlipemia: Status: Acute Qualifiers: Hyperlipidemia type: mixed hyperlipidemia Qualified Code(s): E78.2 - Mixed hyperlipidemia (4) Generalized anxiety disorder: Status: Acute (5) GERD (gastroesophageal reflux disease): Status: Acute Reason for Visit Reason for Visit: M25.561, G89.29, M17.11 Brief History: Status post right TKA Hospital Course Hospital Course Patient presented to the preoperative holding area with plan for right total knee arthroplasty after patient has been worked up in the outpatient setting for failed conservative treatment of right knee degenerative joint disease. Once cleared by anesthesia for surgery patient subsequently was taken back to the operative suite underwent anesthesia per anesthesia department and then subsequently underwent a right total knee arthroplasty. Procedure was performed without any complications patient was taken to PACU in stable condition patient recovered well in PACU and then was admitted to the floor postoperatively internal medicine was consulted and on board for medical management and assistance with care. Patient received appropriate PT/OT, postoperative antibiotics, postoperative TXA, pain control, postoperative DVT prophylaxis. Elevation and ice. Patient encouraged for knee range of motion allowed weightbearing as tolerated to the operative lower extremity. Dressing was changed as needed, labs were monitored daily. Patient recovered well postoperatively and worked well and progressed well with therapy. Patient does state clonazepam and was educated on not taking this if sleepy or drowsy from the oxycodone as this can have compounding effect. It was determined on postoperative day 1 the patient was stable for discharge from an orthopedic standpoint and medicine. Patient was comfortable with discharge and plan was discharged home. Patient received appropriate discharge instructions as well as pain medication and DVT prophylaxis postoperatively. Given appropriate instructions for dressing management. Patient will follow-up with Dr. Alvarez/orthopedics in the office in 2 weeks. All questions answered. Understand if there is any issues questions or concerns and contact the office. Physical Exam Narrative: Right knee: Examination right knee demonstrates dressings on in place is clean dry and intact normal postoperative swelling appreciated. Patient's compartments are soft compressible calf soft and nontender. Patient is able to wiggle toes plantarflex and dorsiflex ankle. Sensations intact light touch distally toes warm well-perfused brisk cap refill less than 2 seconds distal pulses palpable. Normal postoperative tenderness palpation about the right knee Diffusely. Urinary Catheter Management: Trejo: Cath Placed During This Visit: yes, but has since been removed by the nurse Reason for Continuing Indwelling Catheter: Decision to DC Catheter Urinary Catheter Date of Insertion: 11/06/23 Urinary Catheter Time of Insertion: 07:37 Date Urinary Catheter Removed: 11/06/23 Time Urinary Catheter Discontinued: 18:46 Discharge Data Studies Completed and Pending Completed Studies During Hospitalization Category Date Time Status XR knee RT 1-2V [id number] Routine Exams 11/06/23 09:45 Completed Pending at discharge Category Date Time Status Antibody Identification Routine Lab 11/06/23 06:17 Results Antigen Typing Patient Routine Lab 11/06/23 06:17 Results Leukocyte Reduced RBC Routine Lab 11/06/23 06:17 Results Type and Screen Routine Lab 11/06/23 06:17 Results Radiology Impressions Knee X-Ray 11/06/23 09:45 IMPRESSION: The total knee prosthesis is well-positioned. Laboratory Results WBC 8.26 10^3/uL (3.29-11.43) 11/07/23 04:52 RBC 3.70 10^6/uL (3.85-5.65) L 11/07/23 04:52 Hgb 10.60 g/dL (11.27-16.99) L 11/07/23 04:52 Hct 33.6 % (36-47) L 11/07/23 04:52 MCV 90.8 fl (85-98) 11/07/23 04:52 MCH 28.6 pg (27-33) 11/07/23 04:52 MCHC 31.5 g/dL (30-55) 11/07/23 04:52 RDW 13.9 % (12.1-15.1) 11/07/23 04:52 Plt Count 181 10^3/cmm (157-399) 11/07/23 04:52 MPV 10.9 fL (7.4-10.4) H 11/07/23 04:52 Neut % (Auto) 67.8 % 11/07/23 04:52 Lymph % (Auto) 22.9 % 11/07/23 04:52 [place] % (Auto) 8.5 % 11/07/23 04:52 Eos % (Auto) 0.1 % 11/07/23 04:52 Baso % (Auto) 0.2 % 11/07/23 04:52 Neut # (Auto) 5.60 10^3/uL (1.8-7.7) 11/07/23 04:52 Lymph # (Auto) 1.9 10^3/uL (0.8-4.8) 11/07/23 04:52 [place] # (Auto) 0.7 10^3/uL (0.2-0.9) 11/07/23 04:52 Eos # (Auto) 0.0 10^3/uL (0.0-0.8) 11/07/23 04:52 Baso # (Auto) 0.0 10^3/uL (0.0-0.1) 11/07/23 04:52 Nucleated RBC % (auto) 0 % 11/07/23 04:52 Nucleated RBCs # 0.0 /100WBC 11/07/23 04:52 Sodium 142 mmol/L (136-145) 11/07/23 04:52 Potassium 3.7 mmol/L (3.5-5.1) 11/07/23 04:52 Chloride 108 mmol/L (98-107) H 11/07/23 04:52 Carbon Dioxide 26 mmol/L (22-29) 11/07/23 04:52 Anion Gap 11.7 (5-19) 11/07/23 04:52 BUN 9 mg/dL (8-23) 11/07/23 04:52 Creatinine 0.8 mg/dL (0.5-0.9) 11/07/23 04:52 GFR Calculation Not Reportable 11/07/23 04:52 Glucose 115 mg/dL (65-115) 11/07/23 04:52 Calculated Osmolality 294 mOsm/kg (285-295) 11/07/23 04:52 Calcium 8.4 mg/dL (8.5-10.5) L 11/07/23 04:52 Blood Type O Positive 11/06/23 06:17 Rho(D) Type Rh positive 11/06/23 06:17 Antibody Screen Positive 11/06/23 06:17 Antibody Identification Anti-E 11/06/23 06:17 Antigen Identification E Antigen - NEGATIVE 11/06/23 06:17 Crossmatch See Detail 11/06/23 06:17 Vitals Last Vital Signs Temp 99.7 F H 11/07/23 13:32 Pulse 67 11/07/23 13:32 Resp 16 11/07/23 13:32 BP 132/64 11/07/23 13:32 Pulse Ox 95 11/07/23 13:32 O2 Del Method Room Air 11/07/23 11:40 O2 Flow Rate 6 11/06/23 09:58 Discharge Plan Discharge Patient Disposition: Home Health Service Condition: Stable Prescriptions: New oxycodone 5 mg tablet 5 mg PO Q6H PRN (Reason: pain postop) 7 Days Qty: 28 0RF ondansetron 4 mg tablet,disintegrating 4 mg PO Q8H PRN (Reason: nausea and vomiting) 3 Days Qty: 9 0RF Eliquis 2.5 mg tablet 2.5 mg PO BID 14 Days Qty: 28 0RF Continued albuterol sulfate 90 mcg/actuation HFA aerosol inhaler 2 puff inhalation Q6H PRN (Reason: shortness of breath or wheezing) Qty: 6.7 0RF (DME) 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 See Rx Instructions .Route .MEDSUPPLY Qty: 1 0RF Rx Instructions: As directed famotidine 40 mg tablet 40 mg PO DAILY Qty: 90 0RF clonazepam 0.5 mg tablet 0.5 mg PO .at hs Qty: 90 0RF levothyroxine 50 mcg tablet 50 mcg PO DAILY Rx Instructions: Take 1 tablet by mouth once daily propranolol 20 mg tablet 20 mg PO TID Rx Instructions: TAKE 1 TABLET BY MOUTH THREE TIMES DAILY escitalopram oxalate 5 mg tablet 5 mg PO DAILY Rx Instructions: Take 1 tablet by mouth once daily Discharge Orders: Discharge Order (Routine); Ordered 11/07/23 Ordered By: Ang Alvarez Other Ambulatory Orders: DME: Walker (Order) Location: None Selected Ordered By: Ang Alvarez Referrals: [facility] [place] [Outside] [facility] ([facility]) [Outside] Ang Alvarez DO [Physician] - 11/21/23 2:30 pm Discharge Diet: Regular Discharge Activity: Limit activity as instructed Patient Instructions: Oxycodone, Rapid Release (By mouth), Ondansetron (By mouth), Apixaban (By mouth), Acute Wound Care (DC), Total Knee Replacement (GEN), Joint Replacement Stoplight, Opioid Safety, Post Anesthesia Care Activity Restrictions/Additional Instructions: Keep incisions clean dry and intact, leave Silverlon bandage dressings on in place for 7 days after that may rinse incisions with warm soapy water pat dry and redress with a dry dressing. Patient may weight-bear as tolerate to the operative extremity Utilize crutches as needed Encourage knee range of motion If tired or fatigued or sleepy from oxycodone would recommend not taking clonazepam. Ice and elevate as needed for pain and swelling Take pain medication as prescribed Take antinausea medication as needed The prescribed Eliquis twice daily for the next 14 days for blood clot prevention May supplement for pain with ibuprofen [id number] as needed No baths or soaks Follow-up in the orthopedic office in 2 weeks Contact the office for any questions or concerns Discharge Attestations Time Spent in Discharge Care*: less than 30 min Quality Metrics Clinical Quality Measures [ No reported AMI, CVA or VTE this stay] Coding Level of Care Code Acute Code for Chg Fwd Diagnoses Osteoarthritis of right knee M17.11 Essential hypertension I10 Hypertension type: essential hypertension Mixed hyperlipidemia E78.2 Hyperlipidemia type: mixed hyperlipidemia Generalized anxiety disorder F41.1 GERD (gastroesophageal reflux disease) K21.9
== END 2023-11-07 13:33 | disposition home health service (06) ==
LOC: MEDSURG 10:05
PROVIDERS: Physician Assistant; Admitting Provider Student in an Organized Health Care Education/Training Program; PCP Family Medicine; Visit Provider Student in an Organized Health Care Education/Training Program
PROC: 8E0Y0CZ Robotic Assisted Procedure of Lower Extremity, Open Approach (ICD-10-PCS; CPT 27447; principal; 2023-11-06 07:00)
DX: M17.11 Unilateral primary osteoarthritis, right knee (principal); I10 Essential (primary) hypertension; E78.2 Mixed hyperlipidemia; F41.1 Generalized anxiety disorder; K21.9 Gastro-esophageal reflux disease without esophagitis; E03.9 Hypothyroidism, unspecified
CPT/HCPCS: 20985; 27447; 36415; 51702; 73560; 73562; 80048; 80503; 85025; 86850; 86870; 86900; 86902; 86920; 97110; 97116; 97161; 97165; 97530; C1776; G0378; J0131; J0171; J0690; J1100; J1170; J2250; J2371; J2405; J2704; J2795; J3010; J3490; J7030; J7120

== ENCOUNTER → 2023-11-21 14:17 | Outpatient (BNVA) | payer MEDICARE, OTHER, SELFPAY | PROVIDERS: PCP Family Medicine; Visit Provider Physician Assistant | DX: Z96.651 Presence of right artificial knee joint (principal) | CPT/HCPCS: 73560; 73565; 99024 ==

== ENCOUNTER → 2024-01-02 14:04 | Outpatient (BNVA) | payer MEDICARE, OTHER, SELFPAY | PROVIDERS: PCP Family Medicine; Visit Provider Physician Assistant | DX: Z96.651 Presence of right artificial knee joint (principal) | CPT/HCPCS: 73560; 73565; 99024 ==

== ENCOUNTER → 2024-02-01 10:51 | Outpatient (BNVA) | payer MEDICARE, OTHER, SELFPAY | PROVIDERS: PCP Family Medicine; Visit Provider Physician Assistant | DX: Z48.89 Encounter for other specified surgical aftercare (principal); Z96.659 Presence of unspecified artificial knee joint | CPT/HCPCS: 99213 ==

== ENCOUNTER 2024-02-21 08:57 | Outpatient (CLI) | payer MEDICARE, OTHER, SELFPAY ==
--- NOTE | 2024-02-21 09:00 | CT_ITS ---
WS: [id number] LDCT LUNG CANCER SCREENING HISTORY: lung cancer screening TECHNIQUE: Axial imaging performed from the apices to 1 cm below the costophrenic angles. Coronal and sagittal reformats are submitted with axial MIP series. All CT scans at [facility] use at least one of these dose optimization techniques: automated exposure control; mA and/or kV adjustment per patient size (includes targeted exams where dose is matched to clinical indication); or iterativ e reconstruction. DLP: 50.82 mGy.cm DIvol: Mean CTDIvol: 1.00 (mGy) COMPARISON: 11/23/2022 Diagnostic quality: Satisfactory Lungs: Moderate pulmonary hyperinflation with centrilobular emphysema. 2 mm micronodule periphery LEF T upper lobe. No new or suspicious masses or enlarging nodules. No endobronchial lesions. Heart: Normal size heart with no pericardial effusion.. Other findings: No adenopathy identified. Small lymph nodes to be difficult to exclude. Minimal ather osclerosis aorta. Only the RIGHT thyroid is identified. The LEFT hip been surgically removed. Similar to the prior study. No adrenal mass. Marked increase in thoracic kyphosis with advanced degenerative disc disease. L1 compression fracture unchanged. CT/CT lung screening [id number] IMPRESSION: LUNG-RADS: 1-Negative FOLLOW UP: 12 Month: Continue annual screening with LDCT OTHER FINDINGS (S MODIFIER): None.
== END 2024-02-21 08:58 | disposition home or self-care (01) ==
LOC: RAD 08:58
PROVIDERS: PCP Family Medicine; Visit Provider Family Medicine
DX: Z12.2 Encounter for screening for malignant neoplasm of respiratory organs (principal); Z87.891 Personal history of nicotine dependence; J43.2 Centrilobular emphysema; R91.1 Solitary pulmonary nodule; M40.204 Unspecified kyphosis, thoracic region
CPT/HCPCS: 71271

== ENCOUNTER → 2024-05-03 10:58 | Outpatient (BNVA) | payer MEDICARE, OTHER, SELFPAY | PROVIDERS: PCP Family Medicine; Visit Provider Physician Assistant | DX: Z96.651 Presence of right artificial knee joint (principal) | CPT/HCPCS: 73560; 73565; 99213 ==

== ENCOUNTER → 2024-08-02 12:33 | Outpatient (BNVA) | payer MEDICARE, OTHER, SELFPAY | PROVIDERS: PCP Family Medicine; Visit Provider Family Medicine | DX: I10 Essential (primary) hypertension (principal); E03.9 Hypothyroidism, unspecified; E78.2 Mixed hyperlipidemia | CPT/HCPCS: 80053; 80061; 84443 ==

== ENCOUNTER → 2024-10-02 14:31 | Outpatient (BNVA) | payer MEDICARE, OTHER, SELFPAY | PROVIDERS: PCP Family Medicine; Visit Provider Family Medicine | DX: R30.0 Dysuria (principal) | CPT/HCPCS: 81003 ==

== ENCOUNTER 2024-10-11 14:50 | Outpatient (CLI) | payer MEDICARE, OTHER, SELFPAY ==
--- NOTE | 2024-10-11 15:00 | USCV_ITS ---
Yakelin Sunshine Age: 73 Gender: F : 1950 Exam Date: 10/11/2024 15:17 Ordering Phys: Fátima Hoffman MD Technologist: [employer] Exam Location: [facility] [place] Indication: TIA Risk Factors: Previous Vascular Surgery: Right Brachial BP: / Left Brachial BP: / Right Left Velocity (cm/s) Spectral Plaque Velocity (cm/s) Spectral Plaque Syst/Diast Broadening Syst/Diast Broadening 77.60/ 17.50 Prox CCA 116.20/ 21.60 69.10/ 17.60 Mid CCA 76.00 / 21.40 82.20/ 21.20 Distal CCA 73.70 / 21.90 65.40/ 12.30 Prox ICA 51.30 / 12.40 103.70/22.50 Mid ICA 60.60 / 19.30 75.10/ 26.20 Distal ICA 91.80 / 33.10 70.30 ECA 69.00 0.80 ICA/CCA 0.70 Antegrade Vertebral Antegrade 56.90/ 13.70 cm/s 59.70/ 15.10 cm/s Tri Subclavian Bi 109.2 103.6 0 0 CONCLUSIONS Right ICA stenosis <50%. Mild atheromatous plaque right carotid bulb/ICA. Left ICA stenosis <50%. Mild atheromatous plaque left carotid bulb/ICA. Intimal thickening in the common carotid arteries and internal carotid arteries bilaterally. Normal antegrade Doppler flow noted in the right vertebral artery. Normal antegrade Doppler flow noted in the left vertebral artery. Kris White MD (Electronically Signed) Final Date: 11 October 2024 16:12 S
== END 2024-10-11 14:51 | disposition home or self-care (01) ==
LOC: RAD 14:51
PROVIDERS: PCP Family Medicine; Visit Provider Family Medicine
DX: G45.9 Transient cerebral ischemic attack, unspecified (principal)
CPT/HCPCS: 93880

== ENCOUNTER → 2024-11-05 13:43 | Outpatient (BNVA) | payer MEDICARE, OTHER, SELFPAY | PROVIDERS: PCP Family Medicine; Visit Provider Physician Assistant | DX: Z47.1 Aftercare following joint replacement surgery (principal); Z96.651 Presence of right artificial knee joint | CPT/HCPCS: 73560; 73565; 99213 ==

== ENCOUNTER 2024-11-08 13:27 | Outpatient (CLI) | payer MEDICARE, OTHER, SELFPAY ==
--- NOTE | 2024-11-08 13:30 | USCV_ITS ---
Yakelin Sunshine Age: 73 Gender: F : 1950 Exam Date: 11/08/2024 13:54 Ordering Phys: Fátima Hoffman MD Technologist: Eliseo Harvey Exam Location: [facility] [place] Indication: Mitral Valve polapse f/u; palpitaions, dizziness BP: 146 / 74 HR: 56 Rhythm: Sinus Technical Quality: Adequate MEASUREMENTS (Male / Female) Normal Values 2D ECHO LV Diastolic Diameter PLAX 4.2 cm 4.2 - 5.9 / 3.9 - 5.3 cm IVS Diastolic Thickness 0.8 cm 0.6 - 1.0 / 0.6 - 0.9 cm IVS Systolic Thickness 1.2 cm LVPW Diastolic Thickness 0.8 cm 0.6 - 1.0 / 0.6 - 0.9 cm LVPW Systolic Thickness 1.5 cm LVOT Diameter 2.0 cm LV Ejection Fraction 2D Teich 68.6 % LV Ejection Fraction MOD 4C 72.2 % LV Ejection Fraction MOD 2C 72.7 % LV Ejection Fraction 2C AL 72.1 % LA Diameter 3.8 cm RA Systolic Volume 4C AL 21.0 ml RA Systolic Volume 4C MOD 20.3 ml LA Sys Volume AL 40.3 cm cubed LA Sys Volume Index AL 22.2 cm cubed/m squared Aorta at Sinotubular Diameter 2.0 cm IVC Diameter 2.0 cm M-MODE LA Ao Ratio MM 1.1 AV Cusp Separation MM 1.6 cm DOPPLER AV Peak Velocity 131.3 cm/s LVOT Peak Velocity 84.0 cm/s AV Area Cont Eq vti 1.8 cm squared AV Area Cont Eq pk 2.1 cm squared MV Peak Velocity 367.0 cm/s MV Area PHT 3.7 cm squared Mitral E to A Ratio 0.9 TV Peak Velocity 218.3 cm/s TR Peak Velocity 238.0 cm/s TR Peak Gradient 22.7 mmHg TR Mean Velocity 197.0 cm/s TR Mean Gradient 16.2 mmHg TR Velocity Time Integral 71.4 cm PV Peak Velocity 99.0 cm/s RV Ejection Time 0.3 s FINDINGS Left Ventricle Normal left ventricular size, systolic function and wall thickness, with no regional wall motion abnormalities. Left ventricular ejection fraction is 72%. Normal diastolic function. Right Ventricle Normal right ventricular size and systolic function. Right Atrium Normal right atrial size. Left Atrium Normal left atrial size. Mitral Valve No mitral valve prolapse. Mild mitral valve regurgitation.no mitral valve stenosis. Aortic Valve No aortic valve stenosis. No aortic valve regurgitation. Tricuspid Valve Trace tricuspid valve regurgitation. Normal pulmonary pressure. Pulmonic Valve No pulmonary valve stenosis. No pulmonary valve regurgitation. Pericardium No pericardial effusion. Aorta Normal size aortic root and proximal ascending aorta. IVC Normal inferior vena cava. CONCLUSIONS 1. Normal LV and RV size and systolic function. 2. There is no mitral valve prolapse. 3. Mild mitral valve regurgitation. 4. Normal pulmonary pressure. Patrice Zheng MD, FACC (Electronically Signed) Final Date: 09 November 2024 14:58 S
== END 2024-11-08 13:28 | disposition home or self-care (01) ==
LOC: RAD 13:28
PROVIDERS: PCP Family Medicine; Visit Provider Family Medicine
DX: R00.2 Palpitations (principal); R42 Dizziness and giddiness; I34.0 Nonrheumatic mitral (valve) insufficiency
CPT/HCPCS: 93306

== ENCOUNTER → 2024-12-18 08:23 | Outpatient (BNVA) | payer MEDICARE, OTHER, SELFPAY | PROVIDERS: PCP Family Medicine; Visit Provider Family Medicine | DX: R21 Rash and other nonspecific skin eruption (principal) | CPT/HCPCS: 86003; 86008 ==

== ENCOUNTER → 2025-02-05 14:14 | Outpatient (BNVA) | payer MEDICARE, OTHER, SELFPAY | PROVIDERS: PCP Family Medicine; Visit Provider Nurse Practitioner Family | DX: L81.4 Other melanin hyperpigmentation (principal); W89.1XXA Exposure to tanning bed, initial encounter; Z12.83 Encounter for screening for malignant neoplasm of skin; Z09 Encounter for follow-up examination after completed treatment for conditions other than malignant neoplasm; Z87.2 Personal history of diseases of the skin and subcutaneous tissue | CPT/HCPCS: 99203 ==